=== PATIENT | female | born 1945 | race Caucasian/White ===

== ENCOUNTER → 2021-08-10 | Outpatient (CLI) | payer SELFPAY ==
[2021-08-10 17:48] LABS: Appearance, Urine Clear (Clear); Bilirubin, Urine Neg (Neg); Blood, Urine Neg (Neg); Color, Urine Yellow (P-Yellow); Glucose Qualitative, Urine Neg (Neg); Ketones, Urine Neg (Neg); Leukocyte Esterase, Urine Neg (Neg); Nitrite, Urine Neg (Neg); Protein, Urine Neg (Neg); Urobilinogen, Urine NORM (Normal)
== END | disposition home or self-care (01) ==
LOC: LAB SHORT 15:15 → LAB FUT 07-29 15:25
PROVIDERS: Family Medicine
DX: Z00.00 Encounter for general adult medical examination without abnormal findings (principal)
CPT/HCPCS: 81003

== ENCOUNTER 2022-03-24 09:59 | Day surgery (SDC) | payer OTHER ==
[~2022-03-24] VITALS: Ht 160 cm; Wt 42.8 kg
[2022-03-24] MEDS ORDERED: BRINTELLIX5 MG (12:23)
[2022-03-24] MEDS ORDERED: ALBU90OI (12:38)
[2022-03-24] MEDS ORDERED: ANORO ELLIPTA1 EACH (12:45)
== END 2022-03-24 14:15 | disposition home or self-care (01) ==
LOC: ORSCSDS 09:59
PROVIDERS: Internal Medicine Gastroenterology
PROC: 0DBP8ZX Excision of Rectum, Via Natural or Artificial Opening Endoscopic, Diagnostic (ICD-10-PCS; principal; 2022-03-24 11:15)
PROC: 0DBK8ZX Excision of Ascending Colon, Via Natural or Artificial Opening Endoscopic, Diagnostic (ICD-10-PCS; principal; 2022-03-24 11:15)
PROC: 0DBN8ZX Excision of Sigmoid Colon, Via Natural or Artificial Opening Endoscopic, Diagnostic (ICD-10-PCS; principal; 2022-03-24 11:15)
DX: D50.9 Iron deficiency anemia, unspecified (principal); D12.2 Benign neoplasm of ascending colon; D12.5 Benign neoplasm of sigmoid colon; K63.5 Polyp of colon; K57.30 Diverticulosis of large intestine without perforation or abscess without bleeding; K64.4 Residual hemorrhoidal skin tags; K59.00 Constipation, unspecified; F17.210 Nicotine dependence, cigarettes, uncomplicated; Z79.899 Other long term (current) drug therapy
CPT/HCPCS: 88305; J2704; J7120

== ENCOUNTER 2024-05-30 13:45 | Inpatient (IN) | payer OTHER ==
[~2024-05-30] VITALS: Ht 160 cm; Wt 55.0 kg
[~2024-05-30 13:45] MED LIST: ALBU90OI; ANORO ELLIPTA1 EACH; BRINTELLIX5 MG
[2024-05-30 15:12] LABS: BASOPHILS ABSOLUTE AUTO 0.02 K/mm3 (0.00-0.23); BASOPHILS PERCENT AUTO 0 % (0-2); EOSINOPHILS PERCENT AUTO 0 % (0-6); Hematocrit 46.8 % (33.0-51.0); Hemoglobin 14.9 g/dL (11.5-16.0); IMMATURE GRAN ABSOLUTE AUTO 0.08 K/mm3 (0.00-0.10); IMMATURE GRAN PERCENT AUTO 1 % (0-1); LYMPHOCYTES ABSOLUTE AUTO 0.22 K/mm3 (0.84-5.20); LYMPHOCYTES PERCENT AUTO 3 % (21-46); MONOCYTES ABSOLUTE AUTO 0.32 K/mm3 (0.16-1.47); MONOCYTES PERCENT AUTO 4 % (4-13); Mean Corpuscular HGB Conc 31.8 g/dL (31.5-36.5); Mean Corpuscular Volume 94 fL (80-100); Mean Platelet Volume 9.6 fL (9.1-12.4); NEUTROPHILS ABSOLUTE AUTO 6.93 K/mm3 (1.96-9.15); NEUTROPHILS PERCENT AUTO 92 % (41-73); NRBC ABSOLUTE 0.02 K/mm3 (0.00-0.02); NRBC Auto 0.3 /100 WBC (0.0-0.2); Platelet Count 300 K/mm3 (150-400); RDW Coefficient Variation 15.3 % (11.7-14.2); RDW Standard Deviation 51.3 fL (35.1-46.3); Red Blood Cell Count 4.97 M/mm3 (3.80-5.20); White Blood Cell Count 7.57 K/mm3 (4.00-11.30)
[2024-05-30 15:41] LABS: Albumin, Blood 3.3 g/dL (3.4-5.0); Bilirubin, Total 1.1 mg/dL (0.1-1.0); Bun/Creatinine Ratio 59.2 (12.0-20.0); Calcium, Blood 8.9 mg/dL (8.5-10.1); Creatinine, Blood 0.93 mg/dL (0.40-1.00); Globulin, Blood 3.2 g/dL (2.2-4.0); Potassium, Blood 4.6 mmol/L (3.5-5.5); Total Protein, Blood 6.5 g/dL (6.4-8.2)
[2024-05-30] MEDS ORDERED: NS 1,000 ML IV SCH (20:35)
[2024-05-30 20:53] LABS: Magnesium, Blood 1.9 mg/dL (1.6-2.4); Phosphorus, Blood 4.1 mg/dL (2.5-4.9)
[2024-05-30] MEDS ORDERED: MethylPREDNISolone Sod Succ 125 MG Vial IV ONE (21:25)
[2024-05-30] MEDS ORDERED: Ipratropium/Albuterol SulF 2.5-0.5MG/3 ML Amp INH ONE (21:25)
[2024-05-30 22:33] LABS: Source, Urine Clean Catch
[2024-05-30] MEDS ORDERED: NS 500 ML IV SCH (22:40)
[2024-05-30 22:47] LABS: Bilirubin, Urine Neg (Neg); Blood, Urine 1+ (Neg); Glucose Qualitative, Urine Neg (Neg); Ketones, Urine 1+ (Neg); Leukocyte Esterase, Urine Neg (Neg); Nitrite, Urine Neg (Neg); Protein, Urine 2+ (Neg); Urobilinogen, Urine 1+ (Normal)
[2024-05-30 22:56] LABS: Appearance, Urine Hazy (Clear); Bacteria Mod /hpf; Color, Urine Yellow (P-Yellow); Red Blood Cells, Urine 0-2 /hpf (0-2); Squamous Epithelial Cells Many /hpf (Few)
[2024-05-30] MEDS ORDERED: Loperamide HCl 2 MG Cap PO PRN (23:15)
[2024-05-30] MEDS ORDERED: Ondansetron HCl 2 MG / ML 2ML Vial IV PRN (23:20)
[2024-05-30] MEDS ORDERED: FLU VACC TS2024-25(6MOS UP)/PF 45 MCG/0.5 ML SYRINGE IM ONE (23:20)
[2024-05-31] VITALS (43 sets, daily range): BP systolic 63–158; BP diastolic 45–121
--- NOTE | 2024-05-31 04:37 | NUR ---
SHIFT SUMMARY. PT ARRIVED ON UNIT @ ~0301. ABLE TO ANSWER ALL ORIENTATION QUESTIONS APPROPRIATELY BUT VERY SLOW TO RESPOND AND UNABLE TO ANSWER NEARLY ANY OTHER QUESTIONS APPROPRIATELY. VERY POOR HISTORIAN, UNSURE OF MUCH OF HEALTH HX, FORGETS QUESTIONS AFTER BEING ASKED OFTEN, ETC. VERY PLEASANT, COOPERATIVE WITH CARE. VITALS STABLE. RUNNING SINUS ON TELE. MAINTAINING ADEQUATE SATURATION ON ROOM AIR AT THIS TIME. BLE EDEMA PRESENT, CRACKLES AUSCULTATED IN BASES. BP STABLE WITH MAP WELL ABOVE >65. ADMISSION PROCESS AND HEALTH HX COMPLETED TO BEST OF ABILITY WITH PT UNABLE TO ANSWER MOST QUESTIONS AND UNSURE OF MANY OF ANSWERS TO QUESTIONS. WHEN ASKED ABOUT CODE STATUS, PT VACILATING BETWEEN DNR AND FULL CODE STATUS. ULTIMATELY DECIDED SHE "DID NOT WANT TO THINK ABOUT IT RIGHT NOW". CODE STATUS WILL REMAIN IS. PT OTHERWISE STABLE. BED LOCKED IN LOWEST POSITION. CALL LGIHT LEFT WITHIN REACH, EDUCATION ONUSE PROVIDED. BED ALARM ACTIVE. CONTINUING TO MONITOR.
[2024-05-31 04:40] LABS: BASOPHILS ABSOLUTE AUTO 0.01 K/mm3 (0.00-0.23); BASOPHILS PERCENT AUTO 0 % (0-2); EOSINOPHILS ABSOLUTE AUTO 0.02 K/mm3 (0.00-0.68); EOSINOPHILS PERCENT AUTO 0 % (0-6); Hematocrit 48.9 % (33.0-51.0); Hemoglobin 15.7 g/dL (11.5-16.0); IMMATURE GRAN ABSOLUTE AUTO 0.07 K/mm3 (0.00-0.10); IMMATURE GRAN PERCENT AUTO 1 % (0-1); LYMPHOCYTES ABSOLUTE AUTO 0.11 K/mm3 (0.84-5.20); LYMPHOCYTES PERCENT AUTO 2 % (21-46); MONOCYTES ABSOLUTE AUTO 0.12 K/mm3 (0.16-1.47); MONOCYTES PERCENT AUTO 2 % (4-13); Mean Corpuscular HGB 30.4 pg (26.0-34.0); Mean Corpuscular HGB Conc 32.1 g/dL (31.5-36.5); Mean Corpuscular Volume 95 fL (80-100); Mean Platelet Volume 9.4 fL (9.1-12.4); NEUTROPHILS ABSOLUTE AUTO 7.04 K/mm3 (1.96-9.15); NEUTROPHILS PERCENT AUTO 96 % (41-73); NRBC ABSOLUTE 0.02 K/mm3 (0.00-0.02); NRBC Auto 0.3 /100 WBC (0.0-0.2); Platelet Count 308 K/mm3 (150-400); RDW Coefficient Variation 15.2 % (11.7-14.2); RDW Standard Deviation 51.1 fL (35.1-46.3); Red Blood Cell Count 5.17 M/mm3 (3.80-5.20); White Blood Cell Count 7.37 K/mm3 (4.00-11.30)
[2024-05-31 05:16] LABS: Albumin, Blood 3.9 g/dL (3.4-5.0); Albumin/Globulin Ratio 1.1 (0.8-1.8); Bilirubin, Total 1.3 mg/dL (0.1-1.0); Bun/Creatinine Ratio 58.9 (12.0-20.0); Calcium, Blood 9.4 mg/dL (8.5-10.1); Creatinine, Blood 0.9 mg/dL (0.40-1.00); Globulin, Blood 3.6 g/dL (2.2-4.0); Potassium, Blood 4.3 mmol/L (3.5-5.5); Total Protein, Blood 7.5 g/dL (6.4-8.2)
[2024-05-31] MEDS ORDERED: Enoxaparin 30 MG/0.3 ML SYR SC SCH (09:00)
[2024-05-31] MEDS ORDERED: Folic Acid 1 MG in NS 50 ML IV SCH (09:18)
[2024-05-31] MEDS ORDERED: Thiamine HCl 100 MG in NS 50 ML IV SCH (09:19)
--- NOTE | 2024-05-31 10:50 | NUR ---
am note this rn assumed care at 0700. vital signs stable. tele sinus rhythm. patient responds to verbal stimuli and makes sounds, but has not spoken. per report from assistant casino shift manager patient was slow to respond. this rn would give the patient several minutes and maintain eye contact and patient would not respond. perrla. patient does not appear in pain. echo at bedside and during echo while patient laying on side desat into the 70s. oxymask placed and increased oxygen. once patient was back in back oxygen spo2 back into the 90s and titrated back down to 2l. md ruiz aware. this rn spoke with patients brother higinio and updated and higinio faxed patient advance directive, it is in the front of the chart. md ruiz spoke to brother as well and patient code status switched to dni.
[2024-05-31 11:00] LABS: PO2 Arterial 161 mmHg (80-100)
[2024-05-31 11:01] LABS: PCO2 Arterial > 105 mmHg (35-45)
[2024-05-31] MEDS ORDERED: D5W-LR 1,000 ML IV SCH (11:10)
--- NOTE | 2024-05-31 11:29 | NUR ---
UPDATE Marc from RT called this rn to updated on ABG values. ph 7.10 and co2 >105. this rn called md ruiz and plan to put patient on bipap and recehck abg in an hour. bipap placed on at 1120 and spo2 maintaining in the high 80s low 90s.
[2024-05-31 13:11] LABS: PO2 Arterial 93.4 mmHg (80-100)
[2024-05-31 13:13] LABS: PCO2 Arterial 93.4 mmHg (35-45); pH Blood Arterial 7.17 (7.35-7.45)
[2024-05-31] MEDS ORDERED: NS 1,000 ML IV ONE ×2 (13:15→13:20)
[2024-05-31] MEDS ORDERED: Piperacillin/Tazobactam Sod 3.375 GM in NS 100 ML IV SCH (14:00)
[2024-05-31 14:52] LABS: U Amphetamine Screen Not Detected; U Barbituate Screen Not Detected; U Benzodiazapine Screen Not Detected; U Cocaine Screen Not Detected; U Methadone Screen Not Detected; U Methamphetamine Screen Not Detected; U Opiates Screen Not Detected
[2024-05-31 14:53] LABS: U Buprenorphine Screen Not Detected; U Cannabinoids Screen Not Detected; U Oxycodone Screen Not Detected; U Phencyclidine Screen Not Detected
--- NOTE | 2024-05-31 15:12 | NUR ---
update at 1300 took patients blood pressure due to being more solument and not waking up when doing a abg draw. blood pressure softs, see vital signs. this rn called md solomon and md solomon ordered a bolus of fluids and to interest a catheter to monitor Is&Os. Md Solomon called brother, higinio, to update on patient condition and went over lab results with the most receent abs results. After this conversation patient is a limited code, see code status, okay for intubation, but no CPR. MD Solomon spoke wtih Md Luke and plan to transfer over to icu. Md Luke in to see patient around 1355. patient blood pressure is now hypertensive. see vital signs. at 1510 patient stating feeling nauseous while Ratna Rn was in the room. this rn called and informed Ratna bennett to take bipap off and this rn grabed zofran. Tran with RT in room and did ABG draw at 1515.
[2024-05-31 15:19] LABS: PCO2 Arterial 75 mmHg (35-45); PO2 Arterial 62.1 mmHg (80-100); pH Blood Arterial 7.22 (7.35-7.45)
--- NOTE | 2024-05-31 15:55 | NUR ---
update-transfer of care this rn gave report to laura marie rn in ice. patient moved to icu 9 with all belongings. this rn called brother higinio, but was unable to get in touch or leave a voicemail due to not having voicemail set up. higinio number is [phone]. this rn spoke to lul, patient friend, and updated on moving to icu 9. patient is opening eyes now and able to follow commands of squeezing my hands and moving extremities. this rn told the patient going over to icu and patient goes "wheres icu" and this rn informed her its at the same hospital, [facility] just a different floor for closer monitoring.
[2024-05-31] MEDS ORDERED: Ipratropium/Albuterol SulF 2.5-0.5MG/3 ML Amp INH SCH (16:25)
--- NOTE | 2024-05-31 18:09 | NUR ---
PT ARRIVAL/SHIFT SUMMARY... PT ARRIVED TO THE UNIT AT 1500, PT WAS ON BIPAP 12/5 AND 45%, CONFUSED AND PULLING ON LINES. PT'S VS AT THE TIME OF TRANSFER WERE STABLE. THE PT HAD AN EIPSODE OF N/V, BIPAP WAS REMOVED BEFORE THE PT THREW UP. ZOFRAN WAS GIVEN PER EMAR. A DOBHOFF WAS PLACED FOR TUBE FEEDS PER ORDERS. WHEN THE BIPAP WAS REMOVED PT WAS ABLE TO STATE HER NAME/ WHERE SHE WAS AT, THE MONTH AND THE YEAR BUT APROX 1HR AFTER THE BIPAP WAS REMOVED PT STARTED TO GET CONFUSED AGAIN, SHE PULLED OUT AN IV AND HAS BEEN ATTEMPTING TO CLIMB OUT OF BED, PULLING ON HER VIERA AND HAS NOT BEEN REDIRECTABLE. TUBE FEEDS WERE STARTED AT 1700 PIVOT 1.5 AT 20MLS/HR. WILL REPORT TO ONCOMING RN.
--- NOTE | 2024-05-31 18:21 | NUR ---
DOBHOFF... DOBHOFF IS AT 60 IN THE LEFT NARE, PLACEMENT VERIFIED BY XRAY AND DR. ADLER.
--- NOTE | 2024-05-31 21:04 | NUR ---
ASSUMED CARE AT 1900 PATIENT IS ALERT AND ORIENTED X4, BUT VERY FORGETFUL AND NEEDS CONSTANT REDIRECTION. PULLS AT LINES, CORDS, AND VIERA. SP02 100% ON 2L VIA NC. HR SR 70s, BP STABLE. VIERA PATENT AND DRAINING TO GRAVITY. DOBHOFF WITH TF INFUSING AT GOAL. PATIENT REPOSITIONED AND SITTER AT BEDSIDE. CALL LIGHT IN REACH
[2024-05-31] MEDS ORDERED: NS 250 ML IV PRN (22:50)
[2024-06-01] VITALS (46 sets, daily range): BP systolic 79–126; BP diastolic 48–88
--- NOTE | 2024-06-01 01:11 | NUR ---
PATIENT PLACED ON BIPAP AT APPROX 2330, RESTRAINTS REMOVED SHORTLY AFTER, SITTER AT BEDSIDE. PATIENT NEEDS REDIRECTION STILL BUT ABLE TO LEAVE RESTRAINTS OFF AT THIS TIME.
[2024-06-01] MEDS ORDERED: dexmedeTOMIDine 100 ML IV SCH (02:15)
[2024-06-01 04:51] LABS: BASOPHILS ABSOLUTE AUTO 0.01 K/mm3 (0.00-0.23); BASOPHILS PERCENT AUTO 0 % (0-2); EOSINOPHILS PERCENT AUTO 0 % (0-6); Hematocrit 39.9 % (33.0-51.0); Hemoglobin 12.5 g/dL (11.5-16.0); IMMATURE GRAN ABSOLUTE AUTO 0.05 K/mm3 (0.00-0.10); IMMATURE GRAN PERCENT AUTO 1 % (0-1); LYMPHOCYTES ABSOLUTE AUTO 0.09 K/mm3 (0.84-5.20); LYMPHOCYTES PERCENT AUTO 1 % (21-46); MONOCYTES ABSOLUTE AUTO 0.48 K/mm3 (0.16-1.47); MONOCYTES PERCENT AUTO 6 % (4-13); Mean Corpuscular HGB 30.3 pg (26.0-34.0); Mean Corpuscular HGB Conc 31.3 g/dL (31.5-36.5); Mean Corpuscular Volume 97 fL (80-100); Mean Platelet Volume 9.9 fL (9.1-12.4); NEUTROPHILS ABSOLUTE AUTO 8.07 K/mm3 (1.96-9.15); NEUTROPHILS PERCENT AUTO 93 % (41-73); NRBC ABSOLUTE 0.03 K/mm3 (0.00-0.02); NRBC Auto 0.3 /100 WBC (0.0-0.2); Platelet Count 240 K/mm3 (150-400); RDW Standard Deviation 52.4 fL (35.1-46.3); Red Blood Cell Count 4.12 M/mm3 (3.80-5.20)
[2024-06-01 05:11] LABS: Bun/Creatinine Ratio 53.4 (12.0-20.0); Calcium, Blood 8.4 mg/dL (8.5-10.1); Creatinine, Blood 0.9 mg/dL (0.40-1.00); Magnesium, Blood 1.8 mg/dL (1.6-2.4); Phosphorus, Blood 3.6 mg/dL (2.5-4.9); Potassium, Blood 4.8 mmol/L (3.5-5.5)
[2024-06-01] MEDS ORDERED: Ipratropium/Albuterol SulF 2.5-0.5MG/3 ML Amp INH SCH (05:16)
--- NOTE | 2024-06-01 06:29 | NUR ---
SHIFT SUMMARY PATIENT IS ALERT AND ORIENTED X4, BUT VERY FORGETFUL AND NEEDS CONSTANT REDIRECTION NOT TO PULL ON LINES/CORDS/TUBES. PATIENT ON NC TO START SHIFT AND PLACED ON BIPAP AROUND 2330, PATIENT STILL WEARING BIPAP THIS AM. DOBHOFF WITH TF. VIERA PATENT AND DRAINING TO GRAVITY. SITTER AT BEDSIDE. PATIENT TURNED Q2 HOURS. CALL LIGHT IN REACH
--- NOTE | 2024-06-01 07:19 | NUR ---
ASSUMED CARE OF PATIENT AT APPROXIMATELY 0700. REPORT RECEIVED FROM SERJIO HAN. PT AWAKE IN BED WITH SITTER AT BEDSIDE, INTERACTING WITH STAFF APPROPRIATELY DURING BEDSIDE REPORT. CONTINUOUS CARDIAC MONITORING IN PLACE SHOWS SR, BP STABLE. BIPAP WITH SETTINGS OF 400, 16/5, AND 35%. O2 SATURATION > 92%. DOBHOFF INFUSING TF. VIERA PATENT AND DRAINING TO GRAVITY. BILATERAL PIV's, D5+LR INFUSING AT 100 mL/HR. SEE SHIFT ASSESSMENT FOR FULL DETAILS.
[2024-06-01] MEDS ORDERED: MethylPREDNISolone Sod Succ 40 MG VIAL IV SCH (08:30)
[2024-06-01 09:32] LABS: Base Excess Venous 2.3 mmol/L; Bicarbonate Venous 24.1 mmol/L (24.0-30.0); PCO2 Venous 74 mmHg (38-42); pH Blood Venous 7.22 (7.34-7.37)
[2024-06-01] MEDS ORDERED: Protein Supplement 30 ML UD PT SCH (14:00)
--- NOTE | 2024-06-01 18:11 | NUR ---
SHIFT SUMMARY PT REMAINED ALERT AND ORIENTED X 4 T/O ENTIRETY OF SHIFT. ABLE TO FOLLOW COMMANDS, MAKE PURPOSEFUL MOVEMENTS, AND MAKE NEEDS KNOWN. AFEBRILE AND DENIES PAIN. CONTINOUS CARIDAC MONITORING IN PLACE SHOWS SR, BP STABLE c MAP > 65. ON 3LPM O2 VIA NC AT THIS TIME. PT HAS BEEN UNABLE TO RETURN TO BIPAP D/T EPISODES OF EMESIS. MEDICATED PER EMAR WITH GOOD BENEFIT. ST EVAL TODAY WITH ORDERS FOR PUREED DIET. AT APPROXIMATELY 1700 PT PULLED DOBHOFF DURING EPISODE OF EMESIS. PER DR. DONG, DO NOT RE-PLACE DOBHOFF PT TOLERATED PO INTAKE EARLIER THIS SHIFT. VIERA PATENT AND DRAINING TO GRAVITY. D5W+LR INFUSING AT 100 mL/HR. WILL CONTINUE TO MONITOR AND REPORT TO ONCOMING RN.
[2024-06-02] VITALS (14 sets, daily range): BP systolic 86–138; BP diastolic 55–88
[2024-06-02 05:57] LABS: Magnesium, Blood 1.7 mg/dL (1.6-2.4); Phosphorus, Blood 2.1 mg/dL (2.5-4.9)
--- NOTE | 2024-06-02 06:17 | NUR ---
END OF SHIFT: THIS PT IS CURRENTLY RESTING IN BED AND ON 3L NC SATTING 100%. NO ACUTE EVENTS OVERNIGHT.
--- NOTE | 2024-06-02 07:07 | NUR ---
ASSUMED CARE OF PATIENT AT APPROXIMATELY 0700. REPORT RECEIVED FROM SERJIO STEELE. PT AWAKE IN BED, INTERACTING APPROPRIATELY WITH STAFF DURING BEDSIDE REPORT. CONTINOUS CARDIAC MONITORING IN PLACE SHOWS SR, BP STABLE WITH MAP > 65. ON 3LPM O2 VIA NC, O2 SATURATION > 92%. D5W+LR INFUSING AT 100 mL/HR. NO ACUTE NEEDS IDENTIFIED AT THIS TIME. SEE SHIFT ASSESSMENT FOR FULL DETAILS.
[2024-06-02] MEDS ORDERED: Potassium Phos/Sodium Phos 250 MG PACK PO SCH (08:00)
[2024-06-02 08:11] LABS: Base Excess Venous 8.2 mmol/L; Bicarbonate Venous 30.3 mmol/L (24.0-30.0); PCO2 Venous 67.5 mmHg (38-42); pH Blood Venous 7.32 (7.34-7.37)
[2024-06-02] MEDS ORDERED: Protein Supplement 30 ML UD PO SCH (09:00)
--- NOTE | 2024-06-02 17:59 | NUR ---
SHIFT SUMMARY PT SLEPT UNTIL NOON THIS AM. WHEN AWAKE, CONTINUES TO BE ALERT AND ORIENTED X 4. ABLE TO FOLLOW COMMANDS, MAKE PURPOSEFUL MOVEMENTS, AND MAKE NEEDS KNOWN. AFEBRILE AND DENIES PAIN. CONTINOUS CARDIAC MONITORING IN PLACE SHOWS SR, BP STABLE c MAP > 65. ON 3LPM O2 VIA NC, ALTERNATED c BIPAP T/O SHIFT. O2 SATURATIONS > 92%. PT REFUSED LIQUACEL AND NEUTRA-POWDER, CONVERSATION HELD BUT PT STILL REFUSED DR. AKERS NOTIFIED OF THIS. VIERA REMAINS PATENT, DRAINING CLOUDY URINE TO GRAVITY. WILL CONTINUE TO MONITOR AND REPORT TO ONCOMING RN.
[2024-06-03] VITALS (8 sets, daily range): BP systolic 93–120; BP diastolic 55–80
[2024-06-03 03:41] LABS: BASOPHILS PERCENT AUTO 0 % (0-2); EOSINOPHILS ABSOLUTE AUTO 0.03 K/mm3 (0.00-0.68); EOSINOPHILS PERCENT AUTO 0 % (0-6); Hematocrit 35.8 % (33.0-51.0); Hemoglobin 11.3 g/dL (11.5-16.0); IMMATURE GRAN ABSOLUTE AUTO 0.06 K/mm3 (0.00-0.10); IMMATURE GRAN PERCENT AUTO 1 % (0-1); LYMPHOCYTES ABSOLUTE AUTO 0.11 K/mm3 (0.84-5.20); LYMPHOCYTES PERCENT AUTO 1 % (21-46); MONOCYTES ABSOLUTE AUTO 0.48 K/mm3 (0.16-1.47); MONOCYTES PERCENT AUTO 6 % (4-13); Mean Corpuscular HGB 30.2 pg (26.0-34.0); Mean Corpuscular HGB Conc 31.6 g/dL (31.5-36.5); Mean Corpuscular Volume 96 fL (80-100); Mean Platelet Volume 10.1 fL (9.1-12.4); NEUTROPHILS PERCENT AUTO 92 % (41-73); NRBC ABSOLUTE 0.03 K/mm3 (0.00-0.02); NRBC Auto 0.4 /100 WBC (0.0-0.2); Platelet Count 200 K/mm3 (150-400); RDW Coefficient Variation 15.1 % (11.7-14.2); Red Blood Cell Count 3.74 M/mm3 (3.80-5.20); White Blood Cell Count 8.48 K/mm3 (4.00-11.30)
[2024-06-03 04:27] LABS: Bun/Creatinine Ratio 47.8 (12.0-20.0); Calcium, Blood 8.4 mg/dL (8.5-10.1); Creatinine, Blood 0.65 mg/dL (0.40-1.00); Magnesium, Blood 1.6 mg/dL (1.6-2.4); Phosphorus, Blood 2.4 mg/dL (2.5-4.9); Potassium, Blood 4.2 mmol/L (3.5-5.5)
--- NOTE | 2024-06-03 06:07 | NUR ---
END OF SHIFT REPORT: THIS PT HAD NO ACUTE EVENTS OCCUR OVERNIGHT. PT IS CURRENTLY SLEEPING WITH BIPAP MASK ON. HR IN 70s AND SATTING 94%.
[2024-06-03] MEDS ORDERED: Ipratropium/Albuterol SulF 2.5-0.5MG/3 ML Amp INH SCH (08:55)
[2024-06-03] MEDS ORDERED: Thiamine HCl 100 MG Tab PO SCH (09:00)
[2024-06-03] MEDS ORDERED: Folic Acid 1 MG TAB PO SCH (09:00)
[2024-06-03] MEDS ORDERED: D5W-LR 1,000 ML IV SCH (09:05)
[2024-06-03] MEDS ORDERED: Mometasone/Formoterol MDI 200/5 mcg 13 GM INH SCH (09:10)
[2024-06-03] MEDS ORDERED: Albuterol HFA200 ACT/6.7 GM INH INH PRN (09:10)
[2024-06-03] MEDS ORDERED: CefTRIAXone Sodium 1,000 MG in NS 100 ML IV SCH (09:30)
--- NOTE | 2024-06-03 11:43 | NUR ---
CONTACTED DR. AKERS, DISCUSSED NEW ONSET PINK URINE AND HGB. MONITOR FOR NOW. WILL DC VIERA CATHETER AND PLACE EXTERNAL CATHETER. PT ABLE TO DRINK 1/2 OF LIQUACEL THIS MORNING AND DECLINED FURTHER DOSES. UNABLE TO DRINK PHOSPHORUS SUPPLEMENT WELL. PROVIDER TO ADJUST ASSOCIATED ORDERS.
--- NOTE | 2024-06-03 13:51 | NUR ---
REPORT CALLED TO SERJIO MURRY IN PCU. UPDATED TO PT STATUS, PENDING ORDERS, ASSESSMENT TRENDS AND PLAN OF CARE. PT TRANSFERRED TO PCU 14 WITH ALL PERSONAL BELONGINGS VIA BED ACCOMPANIED BY RN.
--- NOTE | 2024-06-03 14:27 | NUR ---
1250 BG CHECKED, 71 - PT GIVEN FULL CUP APPLE JUICE. MENTATION IMPROVED. PT ABLE TO EAT A FEW BITES OF LUNCH TRAY WITH ASSISTANCE. PT NOW ALERT AND ORIENTED X3, REORIENTED TO TIME.
--- NOTE | 2024-06-03 17:42 | NUR ---
SHIFT SUMMARY PT ARRIVED TO PCU FROM ICU AT APPROX 1500. PT SLID BY 4 STAFF FROM ICU BED TO PCU BED. PT A&OX2, CONFUSED. SP02>90% ON 3L NC. PT FREQUENTLY PULLS NC OFF. REMINDED THE IMPORTANCE OF KEEPING ON. TELEMETRY SHOWS NSR, HR 70'S. BP SOFT, SEE VITALS. PT C/O OF PAIN W/ PURWIK, REMOVED, BRIEF SLIGHTLY WET. BRIEF CHANGE, C/D/I. NO BM. PT REFUSED LIQUACEL AND MEDICATIONS. PT STATES, "I TRIED THAT ALREADY AND ITS NASTY". PT ORIENTED TO ROOM AND CALL LIGHT. CALL LIGHT IN REACH.
[2024-06-04] VITALS (10 sets, daily range): BP systolic 92–116; BP diastolic 62–75
[2024-06-04 03:46] LABS: BASOPHILS PERCENT AUTO 0 % (0-2); EOSINOPHILS ABSOLUTE AUTO 0.01 K/mm3 (0.00-0.68); EOSINOPHILS PERCENT AUTO 0 % (0-6); Hematocrit 34.4 % (33.0-51.0); Hemoglobin 10.7 g/dL (11.5-16.0); IMMATURE GRAN ABSOLUTE AUTO 0.05 K/mm3 (0.00-0.10); IMMATURE GRAN PERCENT AUTO 1 % (0-1); LYMPHOCYTES ABSOLUTE AUTO 0.17 K/mm3 (0.84-5.20); LYMPHOCYTES PERCENT AUTO 2 % (21-46); MONOCYTES ABSOLUTE AUTO 0.48 K/mm3 (0.16-1.47); MONOCYTES PERCENT AUTO 6 % (4-13); Mean Corpuscular HGB 30.2 pg (26.0-34.0); Mean Corpuscular HGB Conc 31.1 g/dL (31.5-36.5); Mean Corpuscular Volume 97 fL (80-100); Mean Platelet Volume 9.9 fL (9.1-12.4); NEUTROPHILS ABSOLUTE AUTO 7.14 K/mm3 (1.96-9.15); NEUTROPHILS PERCENT AUTO 91 % (41-73); Platelet Count 199 K/mm3 (150-400); RDW Coefficient Variation 15.1 % (11.7-14.2); RDW Standard Deviation 53.3 fL (35.1-46.3); Red Blood Cell Count 3.54 M/mm3 (3.80-5.20); White Blood Cell Count 7.85 K/mm3 (4.00-11.30)
[2024-06-04 04:16] LABS: Albumin, Blood 2.3 g/dL (3.4-5.0); Bilirubin, Total 0.4 mg/dL (0.1-1.0); Bun/Creatinine Ratio 53.4 (12.0-20.0); Calcium, Blood 8.3 mg/dL (8.5-10.1); Creatinine, Blood 0.58 mg/dL (0.40-1.00); Globulin, Blood 2.4 g/dL (2.2-4.0); Magnesium, Blood 1.6 mg/dL (1.6-2.4); Potassium, Blood 4.4 mmol/L (3.5-5.5); Total Protein, Blood 4.7 g/dL (6.4-8.2)
--- NOTE | 2024-06-04 06:02 | NUR ---
SHIFT SUMMARY PT HAS REMAINED UNCHANGED THROUGH NIGHT. PT A&O X 2. ABLE TO MOVE EXTREMETIES. PT FOLLOWS COMMANDS BUT IS EXTREMELY FORGETFUL. PT OFTEN PULLING OFF OXYGEN AND OCCASIONALLY PULLING AT LINES. PT IS SR IN 70s. PT ON 4L NC, PT PRIMARILY BREATHES THROUGH MOUTH BUT OXYMASK SIZES ARE EXTRA LARGE AND DO NOT FIT HER WELL. NC SOMETIMES NOT DELIVERING OXYGEN OPTIMALLY. PT OFTEN PULLING OFF NC AND DESATING INTO THE 80s. OTHERWISE IS IN MID TO HIGH 90s O2 SAT. PT IS ON PUREE DIET BUT HAS NOT SEEMED TO HAVE AN APPETITE. NO BM THIS EVENING. PT HAS HAD WET DEPENDS ON A FEW OCCASIONS. NEW IV PUT IN. WILL CONTINUE TO MONITOR UNTIL REPORT PASSED TO DAY SHIFT TEAM.
[2024-06-04 15:11] LABS: Base Excess Venous 9.2 mmol/L; Bicarbonate Venous 30.4 mmol/L (24.0-30.0); PCO2 Venous 74.7 mmHg (38-42); pH Blood Venous 7.29 (7.34-7.37)
--- NOTE | 2024-06-04 16:30 | NUR ---
SHIFT SUMMARY: PT HAS BEEN ALERT, ORIENTED TO SELF, LOCATION, SITUATION. PT NAPS OFTEN BUT WAKES EASILY TO STAFF IN ROOM. O2 SATS MAINTAINED >90% ON 4 L/MIN VIA NC OR FACE MASK BUT PT PLACED ON BIPAP 12/5 35% THIS AFTERNOON AFTER REPEAT VBG RESULTS, TOLERATING WELL SO FAR. PT DENIES CP, SR ON MONITOR, RATE 70s. EDEMA TO BUE, BLE, BILATERAL FEET. PROVIDER AWARE, STATES NO DIURETIC D/TO COMORBIDITIES AT THIS TIME. LOW APPETITE CONTINUES FOR PT DESPITE ENCOURAGEMENT AND ASSISTANCE BY STAFF. ATTENDS CHECKED FREQUENTLY AND CHANGED PRN. Q2H REPOSITIONING, MEPILEX CHANGED THIS SHIFT, NO BROKEN SKIN ON COCCYX BUT IT IS RED/NONBLANCHABLE/BONY. PT OOB W/PT TODAY, HAD 1 LOOSE STOOL ON BSC. PROVIDER NOTIFIED AND ORDER FOR PROBIOTIC RECEIVED/PLACED. AT THIS TIME, PT RESTING QUIETLY IN BED W/CALL LIGHT IN REACH.
[2024-06-04] MEDS ORDERED: Lactobacil 2-S.Thermo-Bifido 1 1 Cap PO SCH (21:00)
[2024-06-05] VITALS (15 sets, daily range): BP systolic 84–135; BP diastolic 54–69
[2024-06-05 04:01] LABS: Bicarbonate Venous 34.1 mmol/L (24.0-30.0); PCO2 Venous 58.2 mmHg (38-42); pH Blood Venous 7.41 (7.34-7.37)
[2024-06-05 04:37] LABS: BASOPHILS PERCENT AUTO 0 % (0-2); EOSINOPHILS ABSOLUTE AUTO 0.04 K/mm3 (0.00-0.68); EOSINOPHILS PERCENT AUTO 1 % (0-6); Hematocrit 32.5 % (33.0-51.0); IMMATURE GRAN ABSOLUTE AUTO 0.07 K/mm3 (0.00-0.10); IMMATURE GRAN PERCENT AUTO 1 % (0-1); LYMPHOCYTES ABSOLUTE AUTO 0.24 K/mm3 (0.84-5.20); LYMPHOCYTES PERCENT AUTO 3 % (21-46); MONOCYTES ABSOLUTE AUTO 0.46 K/mm3 (0.16-1.47); MONOCYTES PERCENT AUTO 7 % (4-13); Mean Corpuscular HGB 29.9 pg (26.0-34.0); Mean Corpuscular HGB Conc 30.8 g/dL (31.5-36.5); Mean Corpuscular Volume 97 fL (80-100); NEUTROPHILS ABSOLUTE AUTO 6.17 K/mm3 (1.96-9.15); NEUTROPHILS PERCENT AUTO 88 % (41-73); Platelet Count 197 K/mm3 (150-400); RDW Coefficient Variation 15.3 % (11.7-14.2); RDW Standard Deviation 53.1 fL (35.1-46.3); Red Blood Cell Count 3.35 M/mm3 (3.80-5.20); White Blood Cell Count 6.98 K/mm3 (4.00-11.30)
[2024-06-05 05:05] LABS: Albumin, Blood 2.2 g/dL (3.4-5.0); Bilirubin, Total 0.4 mg/dL (0.1-1.0); Bun/Creatinine Ratio 59.3 (12.0-20.0); Creatinine, Blood 0.52 mg/dL (0.40-1.00); Globulin, Blood 2.3 g/dL (2.2-4.0); Potassium, Blood 4.5 mmol/L (3.5-5.5); Total Protein, Blood 4.5 g/dL (6.4-8.2)
--- NOTE | 2024-06-05 05:12 | NUR ---
SHIFT SUMMARY PT A&OX3. FORGETFUL AND CONFUSED AT TIMES. PT PULLING IVs THROUGHOUT NIGHT AND TELE LEADS. WHEN ASKED WHY SHE DOESNT SEEM TO REMEMBER OR KNOW WHY SHE DID IT. HOWEVER PT ABLE TO FOLLOW COMMANDS APPROPRIATELY. BPs REMAINS SOFT THROUGHOUT NIGHT. PT ON 4-6L OXYMASK >92%. PT PLACED ON BIPAP FOR MOST OF NIGHT UNTIL 0300 REQUESTED A BREAK. REPEAT VBG IMPROVED WITH PCO2 OF 58 FROM 74. PT STARTED HAVING LOOSE STOOLS THROUGHOUT NIGHT WITH A METALLIC SMELL AND VERY DARK. MD NOTIFIED AND STOOL GUAIAC ORDERED. NEW PIV PLACED IN PT D/T PULLING PREVIOUS PIV. PT CONTINUES TO HAVE PITTING EDEMA THROUGHOUT BODY WITH +3/+4 IN BLE. PT INCONTINENT THROUGHOUT NIGHT, DEPENDS CHANGED AND CHECKED FREQ. ALONG WITH Q2HR TURNS. NO FURTHER QUESTIONS OR CONCERNS AT THIS TIME. PT REMAINS BEDREST WITH CALL PERAZA WITHIN REACH. WILL CONTINUE PLAN OF CARE AND REPORT TO ONCOMING DAY NURSE.
[2024-06-05 14:11] LABS: Stool Occult Blood Guaiac 1 Pos (Neg)
[2024-06-05] MEDS ORDERED: Furosemide 10 MG / ML 2ML Vial IV SCH (15:00)
[2024-06-05] MEDS ORDERED: Midodrine 5 MG Tab PO SCH (15:00)
--- NOTE | 2024-06-05 16:54 | NUR ---
SHIFT SUMMARY: PT A&O TO SELF, LOCATION, SITUATION. PT W/INTERMITTENT BOUTS OF CONFUSION WHERE SHE IS TRYING TO THINK OF WHAT SHE WANTS TO SAY BUT NOT ABLE TO VERBALIZE. PT ON BIPAP TOLERATED T/OUT THE DAY, SETTINGS 14/5 30% OR ON NC AT 3 TO 6 L/MIN. O2 SATS MAINTAINED >92%. RESPIRATIONS ARE A LITTLE MORE LABORED TODAY COMPARED TO YESTERDAY. SR ON MONITOR, RATE MOSTLY 80s, PT DENIES CP. EDEMA CONTINUES TO PROGRESS, PROVIDER AND TYPEWRITER ASSEMBLY AND PARTS INSPECTOR AWARE W/NEW ORDERS PLACED AND ADMINISTERED PER EMAR. BLACK LIQUID STOOL CONTINUES FROM NOC SHIFT, SAMPLE COLLECTED AND SENT TO LAB, RESULTS RECEIVED AND COMMUNICATED TO PROVIDER, NO NEW ORDERS AT THIS TIME. ST TO BEDSIDE FOR REASSESSMENT, DIET ADVANCED PER ORDERS. AT THIS TIME, PT IS RESTING IN BED W/BIPAP ON AND CALL LIGHT IN REACH.
[2024-06-06] VITALS (44 sets, daily range): BP systolic 74–157; BP diastolic 46–75
[2024-06-06] MEDS ORDERED: Midodrine 5 MG Tab PO ONE ×3 (00:20→13:20)
[2024-06-06] MEDS ORDERED: QUEtiapine Fumarate 25 MG Tab PO ONE (00:20)
[2024-06-06 04:47] LABS: Hematocrit 28.3 % (33.0-51.0); Mean Corpuscular HGB 30.1 pg (26.0-34.0); Mean Corpuscular HGB Conc 31.8 g/dL (31.5-36.5); Mean Corpuscular Volume 95 fL (80-100); Mean Platelet Volume 9.9 fL (9.1-12.4); Platelet Count 170 K/mm3 (150-400); RDW Coefficient Variation 15.4 % (11.7-14.2); RDW Standard Deviation 52.3 fL (35.1-46.3); Red Blood Cell Count 2.99 M/mm3 (3.80-5.20); White Blood Cell Count 5.88 K/mm3 (4.00-11.30)
[2024-06-06 05:15] LABS: Bun/Creatinine Ratio 61.9 (12.0-20.0); Calcium, Blood 7.4 mg/dL (8.5-10.1); Creatinine, Blood 0.52 mg/dL (0.40-1.00); Potassium, Blood 4.2 mmol/L (3.5-5.5)
--- NOTE | 2024-06-06 06:24 | NUR ---
SHIFT SUMMARY PT REMAINS A&OX3. FORGETFUL AT TIMES HOWEVER FOLLOWING COMMANDS APPROPRIATELY. PT BECAME HYPOTENSIVE THROUGHOUT NIGHT REQUIRING 2 EXTRA DOSES OF MIDODRINE WHEN MD MUÑOZ NOTIFIED. PT ALSO RESTLESS AND CONTINUES TO RIP OFF TELE LEADS AND PIVs, ONE TIME DOSE OF SEROQUEL GIVEN WITH GOOD EFFECT. PT WAS ABLE TO SLEEP COMFORTABLY WITH BIPAP ON FOR THE MAJORITY OF THE NIGHT. PT ABLE TO NOTIFY CARE TEAM WHEN SHE NEEDS TO USE THE BED GALAN. NO BMs THROUGHOUT NIGHT. NO FURTHER QUESTIONS OR CONCERNS AT THIS TIME. WILL CONTINUE WITH PLAN OF CARE AND [facility]
[2024-06-06] MEDS ORDERED: Albumin (Human) 25gm/100ml 100 ML IV SCH (08:30)
[2024-06-06 08:54] LABS: International Normalized Ratio 1.15; Prothrombin Time Results 12.2 Sec (9.7-11.5)
[2024-06-06] MEDS ORDERED: CefTRIAXone Sodium 1,000 MG in NS 100 ML IV SCH (09:00)
[2024-06-06] MEDS ORDERED: Midodrine 5 MG Tab PO SCH ×3 (09:00→18:00)
[2024-06-06 10:19] LABS: Percent Saturation 23.9 % (15.0-50.0)
[2024-06-06] MEDS ORDERED: Pantoprazole Sodium 40 MG Injection IV SCH (12:40)
--- NOTE | 2024-06-06 12:45 | NUR ---
UPDATE NOTIFIED PROVIDER THAT PT IS HAVING LARGE AMOUNTS OF LIQUID BLACK STOOL WIH DECLINE IN Hgb. ORDERS PLACED.
--- NOTE | 2024-06-06 13:00 | NUR ---
UPDATE BP 70's/40's ON MONITOR AND WITH MANUAL BLOOD PRESSURE CHECKS. PT REPORTS DIZZINESS AND NAUSEA. NOTIFIED PROVIDER. DISCUSSED TREATMENT PLANS, ORDERS PLACED.
[2024-06-06 13:08] LABS: Hematocrit 27.5 % (33.0-51.0); Hemoglobin 8.6 g/dL (11.5-16.0)
[2024-06-06] MEDS ORDERED: NS 250 ML IV SCH (13:15)
[2024-06-06] MEDS ORDERED: Hydrocortisone Sod Succinate 100 MG Vial IV ONE (14:30)
[2024-06-06] MEDS ORDERED: NS 250 ML IV ONE (14:30)
--- NOTE | 2024-06-06 15:00 | NUR ---
UPDATE BP NOT RESPONDING TO INTERVENTIONS HOPED, BP STILL SOFT. NOTIFIED PROVIDER, ADDITIONAL ORDERS PLACED.
--- NOTE | 2024-06-06 16:16 | NUR ---
SPOKE WITH PT'S BROTHER/POA LENO REGARDING PT'S LOWER BLOOD PRESSURES, INCREASED ABD PAIN AND WORSENING OXYGEN SATURATION. LENO ISN'T SURE HE WANTS PT TO HAVE IV PRESSERS, AND UNDERSTANDS SHE ISN'T ABLE TO TAKE ANY SIGNIFICANT PAIN MEDICATION DUE TO THE OTHER ISSUES. HE REQUESTS A CALL FROM PHYSICIAN. ATTEMPTING TO REACH PHYSICIAN.
--- NOTE | 2024-06-06 16:31 | NUR ---
SPOKE WITH PHYSICIAN, HE STATES HE WILL CALL THE PT'S BROTHER TOMORROW. BROTHER UPDATED.
--- NOTE | 2024-06-06 16:45 | NUR ---
UPDATE NOTIFIED PROVIDER THAT PTs BP IS STILL SOFT WITH MAPs <65 AND IS SYPTOMATIC. DISCUSSED THAT PT IS NEEDIN MORE OXYGEN AND WIHOU BP SUPPORT, PUTTIN PT ON BIPAP MAY LOWER BP EVEN FURTHER. DISCUSSED TREATMENT PLAN, ORDERS PLACED TO TRANSFER TO ICU.
--- NOTE | 2024-06-06 16:57 | NUR ---
UPDATE BP 70's/40's ON MONITOR AND WITH MANUAL BLOOD PRESSURE CHECKS. PT REPORTS DIZZINESS AND NAUSEA. NOTIFIED PROVIDER. DISCUSSED TREATMENT PLANS, ORDERS PLACED.
--- NOTE | 2024-06-06 17:37 | NUR ---
TRANSFER TO ICU8 SEE PREVIOUS NOTES. PT A&Ox3, VERY DROWSY THROUGOUT SHIFT BUT BECOMING MORE ALERT THIS EVENING. COMMUNICATES NEEDS APPROPRIATELY. SpO2> 90% ON 5L AT START OF SHIFT, AFTER RECEIVING BOLUSES SpO2 DOWN TO MID 80's ON 5L, TITRATED TO 7L VIA NC TO KEEP SpO2> 90%; DENIES SOB, PT WITH VERY WEAK COUGH. BP SOFT THROUGHOUT SHIFT, SEE PREVIOUS NOTES. SINUS 90's, DENIES CP/PRESSURE. Q2 TURNS PROVIDED. PT WITH LARGE AMOUNTS OF LIQUID BLACK STOOL, CONTINENT & INCONTINENT AT TIMES. PT WITH C/O OF INTERMITTENT ABD DISCOMFORT. REPORT GIVEN TO FILM TECHNICIAN. ALL PT BELONGINGS GATHERED AND PT TRANSFERED VIA HOSPITAL BED BY TWO CLINICAL STAFF MEMBERS. THIS RN NOTIFIED FAMILY OF TRANSFER.
--- NOTE | 2024-06-06 18:12 | NUR ---
TRANSFER TO UNIT AND SHIFT SUMMARY: PATIENT TRANSFERRED TO UNIT AROUND 1730. PATIENT EASILY AROUSED WITH VERBAL STIMULI. PATIENT DENIES PAIN. PATIENT REPORTS SOME NUMBNESS IN HER FEET THAT OCCURS AT TIMES. UPON TRANSFER, PATIENT SPO2 85-92% ON 7L VIA NC. PATIENT DENIED MAJOR SHORTNESS OF BREATH. RT AWARE OF PATIENT TRANSFER. BIPAP STARTED BY RT. RR IN THE 20S-30S. BLOOD PRESSURES STABLE WITH SBP IN THE 110S AND MAPS >65. LEVOPHED ON STANDBY. HR IN THE 80S. PITTING EDEMA PRESENT IN BLE. THIGHS HAVE DEPENDENT EDEMA. PATIENT DENIES CHEST PRESSURE OR PAIN. PATIENT REPORTS MILD UPSET STOMACH. PATIENT TOLERATING SIPS OF WATER WITHOUT DIFFICULTY. NO BOWEL MOVEMENT ONCE TRANSFERRED. PATIENT CALM AND COOPERATIVE. PATIENT REPORTS THAT SHE IS AGREEABLE TO A TRANSFER FOR BALOONING OF HER AORTIC VALVE OR REPLACEMENT NEEDED. PER TRANSFERRING RN, BROTHER AWARE OF TRANSFER TO ICU.
[2024-06-06 18:56] LABS: Hematocrit 26.2 % (33.0-51.0); Hemoglobin 8.4 g/dL (11.5-16.0); Mean Corpuscular HGB 30.4 pg (26.0-34.0); Mean Corpuscular HGB Conc 32.1 g/dL (31.5-36.5); Mean Corpuscular Volume 95 fL (80-100); Mean Platelet Volume 10.3 fL (9.1-12.4); Platelet Count 164 K/mm3 (150-400); RDW Coefficient Variation 15.6 % (11.7-14.2); RDW Standard Deviation 52.8 fL (35.1-46.3); Red Blood Cell Count 2.76 M/mm3 (3.80-5.20); White Blood Cell Count 6.32 K/mm3 (4.00-11.30)
--- NOTE | 2024-06-06 22:37 | NUR ---
SHIFT SUMMARY: PT REMAINED A&OX4 BUT FORGETFUL THROUGH SHIFT. SHE TOLERATED BIPAP WELL AND WAS ON THE NASAL CANNULA FOR SOME TIME WITHOUT ISSUE. SHE DOES STILL DESATURATE QUICKLY WITHOUT OXYGEN. BLOOD PRESSURE WAS STABLE THROUGHOUT SHIFT. PT DID NOT REQUIRE PRESSORS. HR IN THE 80S, SINUS. HANDOFF REPORT WAS GIVEN TO EMS CREW TRANSFERRING PT TO [facility]. PT LEFT WITH EMS AT 2230 WITH 3 BELONGINGS BAG AND PURSE WITH CELL PHONE.
--- NOTE | 2024-06-06 23:24 | NUR ---
ATTEMPTED TO CALL REPORT SEVERAL TIMES SINCE 2229 WITHOUT ANSWER. CONFIRMED NUMBER WITH TRANSFER CENTER. CALLED AGAIN TO THE HOSPITAL AND WAS TRANSFERRED TO THE UNIT TO GIVE REPORT TO CHAPARRO HYDE AT 2319
== END 2024-06-06 22:30 | disposition short-term general hospital (02) | DRG 291 ==
LOC: ER 13:45 → ERHOLD 13:46 → PCU 13:46 → ICUE 05-31 13:51 → PCU 06-03 14:18 → ICUE 06-06 17:25
PROVIDERS: Internal Medicine; Internal Medicine Critical Care Medicine; Student in an Organized Health Care Education/Training Program; ADMIT Student in an Organized Health Care Education/Training Program
PROC: 0DH67UZ Insertion of Feeding Device into Stomach, Via Natural or Artificial Opening (ICD-10-PCS; principal; 2024-05-31)
PROC: 3E0336Z Introduction of Nutritional Substance into Peripheral Vein, Percutaneous Approach (ICD-10-PCS; 2024-05-31)
PROC: 3E030XZ Introduction of Vasopressor into Peripheral Vein, Open Approach (ICD-10-PCS; 2024-05-31)
PROC: 30233J1 Transfusion of Nonautologous Serum Albumin into Peripheral Vein, Percutaneous Approach (ICD-10-PCS; 2024-05-31)
DX: I11.0 Hypertensive heart disease with heart failure (principal); E43 Unspecified severe protein-calorie malnutrition; J96.01 Acute respiratory failure with hypoxia; G93.41 Metabolic encephalopathy; R57.0 Cardiogenic shock; I50.31 Acute diastolic (congestive) heart failure; J96.02 Acute respiratory failure with hypercapnia; R64 Cachexia; N39.0 Urinary tract infection, site not specified; J44.0 Chronic obstructive pulmonary disease with (acute) lower respiratory infection; E87.4 Mixed disorder of acid-base balance; Z68.1 Body mass index [BMI] 19.9 or less, adult; I35.0 Nonrheumatic aortic (valve) stenosis; F17.210 Nicotine dependence, cigarettes, uncomplicated; Z98.890 Other specified postprocedural states; F03.90 Unspecified dementia, unspecified severity, without behavioral disturbance, psychotic disturbance, mood disturbance, and anxiety; Z88.5 Allergy status to narcotic agent; Z71.6 Tobacco abuse counseling; B96.20 Unspecified Escherichia coli [E. coli] as the cause of diseases classified elsewhere
CPT/HCPCS: 36415; 36600; 51702; 71045; 71250; 74177; 80048; 80053; 81001; 82140; 82272; 82330; 82728; 82803; 82947; 83540; 83550; 83605; 83735; 83880; 84100; 84484; 85014; 85018; 85025; 85027; 85610; 85730; 87077; 87086; 87186; 92526; 92610; 93005; 93010; 93306; 94640; 94660; 94664; 94762; 96372; 96374; 96375; 96376; 97110; 97162; 97530; 99285-25; A9270; G0378; J0696; J1650; J1720; J1940; J2405; J2470; J2543; J2919; J3411; J7030; J7040; J7050; J7121; P9047; Q9967